=== PATIENT | male | born 1975 | race Caucasian/White ===

== ENCOUNTER → 2020-06-18 13:33 | Outpatient (BNVA) | payer MEDICAID, SELFPAY | PROVIDERS: Visit Provider Psychiatry & Neurology Psychiatry | DX: F25.0 Schizoaffective disorder, bipolar type (principal); F10.20 Alcohol dependence, uncomplicated; F12.20 Cannabis dependence, uncomplicated; F17.200 Nicotine dependence, unspecified, uncomplicated; F70 Mild intellectual disabilities | CPT/HCPCS: 99204 ==

== ENCOUNTER → 2021-03-21 11:33 | Outpatient (BNVA) | payer MEDICAID, SELFPAY | PROVIDERS: Visit Provider Psychiatry & Neurology Psychiatry | DX: F70 Mild intellectual disabilities (principal); F25.0 Schizoaffective disorder, bipolar type; F17.200 Nicotine dependence, unspecified, uncomplicated; F12.20 Cannabis dependence, uncomplicated; F10.20 Alcohol dependence, uncomplicated | CPT/HCPCS: 99214 ==

== ENCOUNTER 2024-05-23 16:58 | Inpatient (IN) | payer MEDICAID, SELFPAY ==
[2024-05-23 17:01] VITALS: BP 120/82; PULSE 83; RESP 16; TEMP 36.4; O2SAT 97; BMI 21.4
[2024-05-23 17:34] LABS: Basophils # 0.1 10^3/uL (0.0-0.1); Basophils % 1.1 %; Eosinophils # 0.1 10^3/uL (0.0-0.8); Eosinophils % 0.9 %; Hematocrit 44.7 % (37-53); Lymphocytes # 2.6 10^3/uL (0.8-4.8); Lymphocytes % 48.2 %; Mean Corpuscular Hemoglobin 34.9 pg (27-33); Mean Corpuscular Volume 102.5 fl (82-101); Mean Platelet Volume 8.5 fL (7.4-10.4); Monocytes # 0.4 10^3/uL (0.2-0.9); Monocytes % 6.6 %; Neutrophils # 2.34 10^3/uL (1.8-7.7); Neutrophils % 42.7 %; Nucleated Red Blood Cells % 0 %; Platelet Count 343 10^3/cmm (157-399); Red Blood Count 4.36 10^6/uL (3.85-5.65); Red Cell Distribution Width 12.8 % (12.1-15.1); White Blood Count 5.48 10^3/uL (3.29-11.43)
--- NOTE | 2024-05-23 17:34 | PC.NURSE ---
96 hr rights reviewed with patient @1820 with assistance of [facility] staff X2. All education reviewed with patient at this time. No verbalized concerns or complaints. pt is cooperative at this time, but has slight increase in volume levels during brief conversation. Redirectionable and verbally able to deescalate pt. Pt copy was left with pt. Pt declined any snacks or drinks at this time. No further verbalized needs.
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
[2024-05-23 18:02] LABS: Alanine Aminotransferase 13 U/L (0-41); Albumin Level 4.3 g/dL (3.5-5.2); Alkaline Phosphatase 100 U/L (40-130); Anion Gap 16.3 (5-19); Aspartate Amino Transferase 24 U/L (0-40); Blood Urea Nitrogen 6 mg/dL (6-20); Calcium 8.7 mg/dL (8.5-10.5); Carbon Dioxide 28 mmol/L (22-29); Chloride 105 mmol/L (98-107); Creatinine Clr Calc Pharmacy 91.9473; Globulin 3.6 g/dL (1.3-4.6); Glomerular Filtration Rate 102.7 mL/min (90-130); Glucose 83 mg/dL (65-115); Osmolality Calculated 299 mOsm/kg (285-295); Potassium 3.3 mmol/L (3.5-5.1); Sodium 146 mmol/L (136-145); Total Bilirubin 0.2 mg/dL (0.15-1.2); Total Protein 7.9 g/dL (6.6-8.7)
[2024-05-23 18:16] LABS: Acetaminophen < 5.0 ug/mL (10-30); Salicylate < 0.3 mg/dL (3-10)
[2024-05-23 18:17] LABS: Alcohol Level 312 mg/dL (0-10)
[2024-05-23 18:29] VITALS: BP 128/84; PULSE 88; RESP 17; TEMP 37; O2SAT 98
[2024-05-23 22:00] VITALS: BP 128/81; PULSE 88; RESP 17; TEMP 37; O2SAT 98
[2024-05-24 06:00] VITALS: BP 142/87; PULSE 82; RESP 16; TEMP 37; O2SAT 98
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
[2024-05-24] MEDS: folic acid 1 mg Tablet PO (08:36)
[2024-05-24] MEDS: multivitamin therapeutic Tablet 1 TAB PO (08:36)
[2024-05-24] MEDS: thiamine 100 mg Tablet PO (08:36)
[2024-05-24] MEDS: ondansetron 4 MG Tablet PO (09:50)
[2024-05-24] MEDS: LORazepam 2 mg Tablet PO (09:50)
--- NOTE | 2024-05-24 09:56 | PC.NURSE ---
CIWA score of 10, administered ativan 2mg PO. Patient vomiting, shaky. Given zofran as well. Will continue to monitor.
--- NOTE | 2024-05-24 10:08 | PC.NURSE ---
Dysphagia level 7 for some difficulty in chewing foods.
[2024-05-24 14:00] VITALS: RESP 16
--- NOTE | 2024-05-24 18:27 | PC.NURSE ---
DUE TO SEVERE WEATHER, VITALS WERE NOT OBTAINED OTHER THAN RESPIRATIONS WERE OBTAINED AT 16. CHARGE NURSE NOTIFIED.
[2024-05-24 18:37] VITALS: BP 131/84; PULSE 66; RESP 16; TEMP 36.4; O2SAT 98
[2024-05-24 20:00] VITALS: BP 117/74; PULSE 54; RESP 16; TEMP 36.8; O2SAT 98
[2024-05-24] MEDS: trazodone 100 mg Tablet 200 MG PO (20:28)
[2024-05-24] MEDS: hyDROXYzine 25 mg Capsule 50 MG PO (20:28)
[2024-05-24 20:53] VITALS: BP 117/74; PULSE 54; RESP 16; TEMP 36.8; O2SAT 98
[2024-05-25] VITALS (7 sets, daily range): BP systolic 113–142; BP diastolic 72–96; PULSE 51–86; RESP 16–18; TEMP 36–37; O2SAT 97–100
[2024-05-25] MEDS: multivitamin therapeutic Tablet 1 TAB PO (08:35)
[2024-05-25] MEDS: folic acid 1 mg Tablet PO (08:35)
[2024-05-25] MEDS: thiamine 100 mg Tablet PO (08:35)
[2024-05-25] MEDS: ondansetron 4 MG Tablet PO (12:13)
[2024-05-25] MEDS: LORazepam 2 mg Tablet PO (12:13)
--- NOTE | 2024-05-25 18:44 | P.NPUPN_ITS ---
Subjective NPU 2 Subjective: Patient presented today reporting that things are going okay. He denies any side effects to restarting his Invega. He endorsed being hopeful that this is a short stay but understands the process. He reports that his withdrawal symptoms are manageable since the initial bad start. Mental Status Exam 2 MSE Comments: This is a short, slender but well developed white male in hospital scrubs with limited grooming and eye contact. No abnormal movements except for mild to moderate psychomotor agitation. Mostly uncooperative with exam in moderate to extreme distress. Speech was slightly increased rate and volume. Mood described as upset, affect is congruent and irritable. Thought process, linear. Thought content: patient denies suicidal or homicidal ideation, paranoia reported and some guardedness noted, and reports occasional auditory but denied visual hallucinations. Denied current thoughts of hurting or killing self and others. Experiences paranoia, feeling that others may react negatively if he says something wrong. Described mood as okay, feeling a little tired and sick earlier. Taking medications to help with sleep. Stressors include alcohol use and maintaining sobriety, with a potential need to move away from neighbors. Attention and concentration are intact and memory appeared mostly reliable, but none were formally tested. He is alert and oriented x 3. Insight and judgment appeared limited but improving impulse control was impaired. Vitals/I&O/Wt Last Vital Signs Temp 98.6 F 05/25/24 23:58 Pulse 54 L 05/25/24 23:58 Resp 16 05/25/24 23:58 BP 125/78 05/25/24 23:58 Pulse Ox 100 05/25/24 23:58 O2 Del Method Room Air 05/25/24 04:00 Data NPU 05/23/24 17:28 05/23/24 17:28 A&P Assessment and plan (1) Alcohol use disorder, severe, dependence: (2) Cannabis use disorder, severe, dependence: (3) Schizoaffective disorder, bipolar type: (4) Suicidal ideation: (5) Mild intellectual disability: (6) Alcohol intoxication: (7) Alcohol withdrawal: Plan This is a 49 year old white male with a history of significant addiction and diagnosis of a psychotic disorder who presented intoxicated and off of medication for some time. The assessment indicates a history of substance use, including alcohol and cannabis, with past experimentation with methamphetamine. There is a noted history of paranoia and difficulty trusting others, which may be related to past substance use and mental health issues. The patient has a history of psychiatric hospitalization and has been prescribed medications such as trazodone and Paliperidone (Invega) in the past. The patient reports ongoing paranoia and has expressed a desire to maintain sobriety. There is no current indication of suicidal ideation, but there is a history of legal issues related to substance use. The patient has a family history of mental health issues and addiction. 1. Restarted Invega 3 mg p.o. nightly 2. Encourage individual, group and milieu therapy 3. Continue q-15 minute check for safety 4. Recommend sober living treatment at the highest level of care to which the patient is willing to commit. 5. Evaluate against the backdrop of the 96-hour hold. 6. Obtain collateral information. 7. Continue CIWA protocol. PDMP PDMP Reviewed: Not Reviewed Involuntary Hold Information 2 Hold Status: Legal Status: 96 Hour Hold Date/Time Hold Expires: 05/29/24 @17:26 Attestations NPU 2 Medical Necessity Statement*: Inpatient hospitalization is medically necessary and the clinically appropriate intervention at this time. We will monitor medications and make changes as indicated. The patient's Likely length of stay is 3-5 days. Coding Level of Care Code Acute Code for [facility] Diagnoses Alcohol use disorder, severe, dependence F10.20 Cannabis use disorder, severe, dependence F12.20 Schizoaffective disorder, bipolar type F25.0 Suicidal ideation R45.851 Mild intellectual disability F70 Alcohol intoxication F10.929 Alcohol withdrawal F10.939
[2024-05-25] MEDS: BuSPIRONE 10 mg Tablet 15 MG PO (18:54)
[2024-05-25] MEDS: paliperidone ER 3 mg Tablet PO (20:47)
[2024-05-26 04:00] VITALS: BP 124/81; PULSE 65; RESP 18; O2SAT 98
[2024-05-26 07:16] VITALS: BP 125/82; PULSE 63; RESP 18; TEMP 36.9; O2SAT 99
[2024-05-26] MEDS: thiamine 100 mg Tablet PO (08:16)
[2024-05-26] MEDS: multivitamin therapeutic Tablet 1 TAB PO (08:16)
[2024-05-26] MEDS: folic acid 1 mg Tablet PO (08:16)
[2024-05-26] MEDS: BuSPIRONE 10 mg Tablet 15 MG PO ×2 (08:16→17:37)
[2024-05-26 08:55] LABS: Amphetamines Screen Urine Negative (Negative); Barbiturates Screen Urine Negative (Negative); Benzodiazepines Screen Urine Positive (Negative); Cocaine Screen Urine Negative (Negative); Opiate Screen Urine Negative (Negative); PCP Screen Urine Negative (Negative); THC Screen Urine Positive (Negative)
--- NOTE | 2024-05-26 10:37 | PC.NURSE ---
Pt states that he slept as good as he good. He wouldn't answer the questions about anxiety, depression, or SI/HI. States that he is just very irritated being here and wants to go home. States that he is going to go home stay in his room and he wants the neighbors to never speak to him again. He apologized for being cranky, states that he doesn't want to be, but just really wants out of here.
[2024-05-26 12:00] VITALS: BP 116/62; PULSE 82; RESP 16; TEMP 36.6; O2SAT 98
[2024-05-26 15:54] VITALS: BP 120/84; PULSE 74; RESP 18; TEMP 36.8; O2SAT 100
--- NOTE | 2024-05-26 19:20 | P.NPUPN_ITS ---
Subjective NPU 2 Subjective: Patient presented today reporting that things are going well. He was inquiring about discharge and we had a lengthy discussion about the possibilities. Review of his records show that he was never on the long-acting injectable and it appears per his reports and other considerations that he had been adherent to his medication without difficulty before his insurance lapsed. He reports that he has a desire to discontinue his drug use but not attend any inpatient programming and plans to be consistent with his medication. We discussed the tentative possibility of discharge tomorrow. He denied any side effects to the medication. Mental Status Exam 2 MSE Comments: This is a short, slender but well developed white male in hospital scrubs with limited grooming and eye contact. No abnormal movements except for mild to moderate psychomotor agitation. Mostly uncooperative with exam in moderate to extreme distress. Speech was slightly increased rate and volume. Mood described as upset, affect is congruent and irritable. Thought process, linear. Thought content: patient denies suicidal or homicidal ideation, paranoia reported and some guardedness noted, and reports occasional auditory but denied visual hallucinations. Denied current thoughts of hurting or killing self and others. Experiences paranoia, feeling that others may react negatively if he says something wrong. Described mood as okay, feeling a little tired and sick earlier. Taking medications to help with sleep. Stressors include alcohol use and maintaining sobriety, with a potential need to move away from neighbors. Attention and concentration are intact and memory appeared mostly reliable, but none were formally tested. He is alert and oriented x 3. Insight and judgment appeared limited but improving impulse control was impaired. Vitals/I&O/Wt Last Vital Signs Temp 98.2 F 05/26/24 15:54 Pulse 74 05/26/24 15:54 Resp 18 05/26/24 15:54 BP 120/84 05/26/24 15:54 Pulse Ox 100 05/26/24 15:54 O2 Del Method Room Air 05/25/24 04:00 Data NPU 05/23/24 17:28 05/23/24 17:28 A&P Assessment and plan (1) Alcohol use disorder, severe, dependence: (2) Cannabis use disorder, severe, dependence: (3) Schizoaffective disorder, bipolar type: (4) Suicidal ideation: (5) Mild intellectual disability: (6) Alcohol intoxication: (7) Alcohol withdrawal: Plan This is a 49 year old white male with a history of significant addiction and diagnosis of a psychotic disorder who presented intoxicated and off of medication for some time. The assessment indicates a history of substance use, including alcohol and cannabis, with past experimentation with methamphetamine. There is a noted history of paranoia and difficulty trusting others, which may be related to past substance use and mental health issues. The patient has a history of psychiatric hospitalization and has been prescribed medications such as trazodone and Paliperidone (Invega) in the past. The patient reports ongoing paranoia and has expressed a desire to maintain sobriety. There is no current indication of suicidal ideation, but there is a history of legal issues related to substance use. The patient has a family history of mental health issues and addiction. 1. Restarted Invega 3 mg p.o. nightly. 2. Encourage individual, group and milieu therapy 3. Continue q-15 minute check for safety 4. Recommend sober living treatment at the highest level of care to which the patient is willing to commit. 5. Evaluate against the backdrop of the 96-hour hold. 6. Obtain collateral information. 7. Continue CIWA protocol. 8. Considering discharge tomorrow. PDMP PDMP Reviewed: Not Reviewed Involuntary Hold Information 2 Hold Status: Legal Status: 96 Hour Hold Date/Time Hold Expires: 05/29/24 @17:26 Attestations NPU 2 Medical Necessity Statement*: Inpatient hospitalization is medically necessary and the clinically appropriate intervention at this time. We will monitor medications and make changes as indicated. The patient's Likely length of stay is 1-3 days. Coding Level of Care Code Acute Code for [facility] Diagnoses Alcohol use disorder, severe, dependence F10.20 Cannabis use disorder, severe, dependence F12.20 Schizoaffective disorder, bipolar type F25.0 Suicidal ideation R45.851 Mild intellectual disability F70 Alcohol intoxication F10.929 Alcohol withdrawal F10.939
[2024-05-26 20:00] VITALS: BP 120/62; PULSE 88; RESP 16; O2SAT 98
[2024-05-26] MEDS: hyDROXYzine 25 mg Capsule 50 MG PO (22:00)
[2024-05-26] MEDS: paliperidone ER 3 mg Tablet PO (22:00)
[2024-05-26] MEDS: trazodone 50 mg Tablet PO (22:00)
[2024-05-27] VITALS: RESP 16
[2024-05-27 04:00] VITALS: BP 120/81; PULSE 71; RESP 18; O2SAT 100
[2024-05-27 08:00] VITALS: BP 138/88; PULSE 67; RESP 16; O2SAT 100
--- NOTE | 2024-05-27 08:29 | PC.NURSE ---
Pt states that he slept well last night. He denies SI/HI. Anxiety is a 5/10 but relates that to being excited to d/c and nervous what trouble he may be in once d/c. He denies any depression. No pain. Had a bm this morning. Very pleasant and making jokes to lighten his situation.
[2024-05-27] MEDS: BuSPIRONE 10 mg Tablet 15 MG PO (08:39)
[2024-05-27] MEDS: multivitamin therapeutic Tablet 1 TAB PO (08:39)
[2024-05-27] MEDS: thiamine 100 mg Tablet PO (08:39)
[2024-05-27] MEDS: folic acid 1 mg Tablet PO (08:39)
[2024-05-27 12:00] VITALS: BP 132/80; PULSE 57; RESP 16; O2SAT 100
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
[2024-05-27 13:12] VITALS: BP 132/80; PULSE 57; RESP 16; O2SAT 100
== END 2024-05-27 14:36 | disposition home or self-care (01) | DRG 885 ==
LOC: ER 18:42 → NP 18:47
PROVIDERS: Admitting Provider Psychiatry & Neurology Psychiatry; Emergency Provider Emergency Medicine; Visit Provider Psychiatry & Neurology Psychiatry
DX: F25.0 Schizoaffective disorder, bipolar type (principal); F10.239 Alcohol dependence with withdrawal, unspecified; R45.851 Suicidal ideations; F10.229 Alcohol dependence with intoxication, unspecified; Y90.8 Blood alcohol level of 240 mg/100 ml or more; F12.20 Cannabis dependence, uncomplicated; F70 Mild intellectual disabilities; F17.210 Nicotine dependence, cigarettes, uncomplicated; F15.91 Other stimulant use, unspecified, in remission; Z81.1 Family history of alcohol abuse and dependence
CPT/HCPCS: 80053; 80306; 80307; 85025; 97150; 97165; 99285; J9999; Q0162

== ENCOUNTER → 2025-02-08 15:26 | Outpatient (BNVA) | payer MEDICAID, SELFPAY | PROVIDERS: Visit Provider Psychiatry & Neurology Psychiatry | DX: F25.0 Schizoaffective disorder, bipolar type (principal); F10.20 Alcohol dependence, uncomplicated; Z79.899 Other long term (current) drug therapy | CPT/HCPCS: 80061; 83036 ==